=== PATIENT | female | born 2005 | race Caucasian/White ===

== ENCOUNTER 2024-01-28 19:23 | Emergency (ER) | payer OTHER ==
[~2024-01-28] VITALS: Ht 162.6 cm; Wt 52.2 kg
[2024-01-28 19:56] VITALS: TEMP 98.3
[2024-01-28 20:19] VITALS: O2SAT 100
== END 2024-01-28 20:19 | disposition home or self-care (01) ==
LOC: ER 19:31
DX: S01.91XD Laceration without foreign body of unspecified part of head, subsequent encounter (principal); V29.888D Rider (driver) (passenger) of other motorcycle injured in other specified transport accidents, subsequent encounter